=== PATIENT | male | born 1960 | race Caucasian/White ===

== ENCOUNTER 2022-12-26 11:26 | Emergency (ER) | payer BC, MEDICAID ==
[~2022-12-26] VITALS: Ht 188 cm; Wt 118.2 kg
[2022-12-26] MEDS ORDERED: normal saline 1000ML IV soln IVB ONE (11:45)
[2022-12-26] MEDS ORDERED: ondansetron/PF 4mg/2ml inj IV ONE (11:45)
[2022-12-26] MEDS ORDERED: morphine 4 MG/ML inj SYRINge IV PRN (11:45)
[2022-12-26 12:07] LABS: BASOPHILS # (AUTO) 0.1 X10'3 (0-0.2); BASOPHILS % (AUTO) 0.7 % (0-1); EOSINOPHILS # (AUTO) 0.2 X10'3 (0-0.9); EOSINOPHILS % (AUTO) 1.1 % (0-6); HEMATOCRIT 48.3 % (42.0-52.0); HEMOGLOBIN 15.7 g/dl (14.0-17.9); LYMPHOCYTES # (AUTO) 4.9 X10'3 (1.1-4.8); LYMPHOCYTES % (AUTO) 26.9 % (21-51); MEAN CORPUSCULAR HEMOGLOBIN 29.3 PG (27.0-31.0); MEAN CORPUSCULAR HGB CONC 32.6 g/dL (33.0-36.5); MEAN PLATELET VOLUME 8.2 FL (7.4-10.4); MONOCYTES % (AUTO) 5.7 % (2-12); NEUTROPHILS % (AUTO) 65.6 % (42-75); PLATELET COUNT 241 X10'3 (140-440); RED BLOOD COUNT 5.37 X10'6 (4.70-6.10); RED CELL DISTRIBUTION WIDTH 14.7 % (11.5-14.5); WHITE BLOOD COUNT 18.2 X10'3 (4.5-11.0)
[2022-12-26 12:23] LABS: ANION GAP 13 (8-16); BLOOD UREA NITROGEN 20 MG/DL (7-18); BUN/CREATININE RATIO 16.7 (10.0-20.0); CHLORIDE 101 MMOL/L (99-107); GLUCOSE 196 MG/DL (70-104); POTASSIUM 3.7 MMOL/L (3.5-5.1); SODIUM 136 MMOL/L (135-145); TOTAL CARBON DIOXIDE 22.1 MMOL/L (24-32)
[2022-12-26 12:24] LABS: ALANINE AMINOTRANSFERASE 37 U/L (12-78); ALBUMIN 4.1 G/DL (3.4-5.0); ALBUMIN/GLOBULIN RATIO 1.1 (1.1-1.5); ALKALINE PHOSPHATASE 96 IU/L (46-116); ASPARTATE AMINO TRANSFERASE 26 U/L (10-37); BILIRUBIN,TOTAL 0.4 MG/DL (0.1-1.0); CALCIUM 8.9 MG/DL (8.5-10.1); TOTAL PROTEIN 7.8 G/DL (6.4-8.2); eGFR 61 ML/MIN
--- NOTE | 2022-12-26 13:00 | NUR ---
pt is difficult IV start - verbal order for meds to be switched to PO/IM
[2022-12-26] MEDS ORDERED: morphine 4 MG/ML inj SYRINge IM ONE (13:05)
[2022-12-26] MEDS ORDERED: ondansetron 4mg rapidly disintigrating tab PO ONE (13:05)
--- NOTE | 2022-12-26 13:44 | NUR ---
attempted migdalia test with crutches. pt is still painful just trying to get to edgo of bed. provider aware and will order meds.
[2022-12-26] MEDS ORDERED: diazepam 5mg tablet PO ONE (13:50)
[2022-12-26] MEDS ORDERED: HYDR-3965 PO (13:54)
[2022-12-26] MEDS ORDERED: DIAZ5TAB22 PO (13:54)
--- NOTE | 2022-12-26 14:46 | NUR ---
PER SHAMEKA TRIPATHI NO NEED FOR URINE COLLECTION.
[2022-12-26 14:48] VITALS: BP 129/89
[2022-12-27] MEDS ORDERED: DIAZ5TAB22 PO ×2 (09:36)
[2022-12-27] MEDS ORDERED: HYDR-3965 PO ×2 (09:36)
== END 2022-12-26 15:06 | disposition home or self-care (01) ==
LOC: ER 11:27
DX: M25.551 Pain in right hip (principal); E78.00 Pure hypercholesterolemia, unspecified; I10 Essential (primary) hypertension; E11.9 Type 2 diabetes mellitus without complications; Z79.899 Other long term (current) drug therapy; X58.XXXA Exposure to other specified factors, initial encounter; Y93.89 Activity, other specified; Y92.89 Other specified places as the place of occurrence of the external cause; Y99.8 Other external cause status
CPT/HCPCS: 36415; 71045; 73502; 80053; 85025; 85610; 86885; 86900; 86901; 93005; 96372; 99285; J2270; A6258; A6449

== ENCOUNTER 2022-12-28 18:31 | Inpatient (IN) | payer BC, MEDICAID ==
[~2022-12-28] VITALS: Ht 188 cm; Wt 123.9 kg
[~2022-12-28 18:31] MED LIST: DIAZ5TAB22 PO; HYDR-3965 PO
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
[2022-12-28] MEDS ORDERED: LORazepam 2 mg/ml vial IV ONE (18:45)
[2022-12-28] MEDS ORDERED: normal saline 1000ML IV soln IVB ONE (18:45)
[2022-12-28 19:02] LABS: BASOPHILS # (AUTO) 0.1 X10'3 (0-0.2); BASOPHILS % (AUTO) 0.6 % (0-1); EOSINOPHILS # (AUTO) 0.4 X10'3 (0-0.9); EOSINOPHILS % (AUTO) 1.9 % (0-6); HEMATOCRIT 47.1 % (42.0-52.0); HEMOGLOBIN 15.6 g/dl (14.0-17.9); LYMPHOCYTES # (AUTO) 4.1 X10'3 (1.1-4.8); LYMPHOCYTES % (AUTO) 21.2 % (21-51); MEAN CORPUSCULAR HEMOGLOBIN 29.2 PG (27.0-31.0); MEAN CORPUSCULAR VOLUME 88.4 FL (78-98); MEAN PLATELET VOLUME 8.2 FL (7.4-10.4); MONOCYTES % (AUTO) 10.1 % (2-12); NEUTROPHILS % (AUTO) 66.2 % (42-75); PLATELET COUNT 217 X10'3 (140-440); RED BLOOD COUNT 5.33 X10'6 (4.70-6.10); RED CELL DISTRIBUTION WIDTH 14.5 % (11.5-14.5); WHITE BLOOD COUNT 19.6 X10'3 (4.5-11.0)
[2022-12-28 19:22] LABS: ALANINE AMINOTRANSFERASE 28 U/L (12-78); ALBUMIN 3.5 G/DL (3.4-5.0); ALBUMIN/GLOBULIN RATIO 0.8 (1.1-1.5); ALKALINE PHOSPHATASE 93 IU/L (46-116); ANION GAP 14 (8-16); ASPARTATE AMINO TRANSFERASE 18 U/L (10-37); BILIRUBIN,TOTAL 0.8 MG/DL (0.1-1.0); BLOOD UREA NITROGEN 19 MG/DL (7-18); BUN/CREATININE RATIO 12.4 (10.0-20.0); CALCIUM 9.1 MG/DL (8.5-10.1); CHLORIDE 100 MMOL/L (99-107); CREATININE 1.53 MG/DL (0.60-1.10); GLUCOSE 280 MG/DL (70-104); POTASSIUM 3.7 MMOL/L (3.5-5.1); SODIUM 138 MMOL/L (135-145); TOTAL CARBON DIOXIDE 24.2 MMOL/L (24-32); TOTAL PROTEIN 7.7 G/DL (6.4-8.2); eGFR 46 ML/MIN
[2022-12-28 20:47] LABS: CLARITY,URINE CLEAR (Clear); COLOR,URINE YELLOW (Yellow); GLUCOSE, URINE >=1000 mg/dl (Neg); KETONES,URINE 40 mg/dl (Neg); LEUKOCYTE ESTERASE ,URINE NEGATIVE (Neg); NITRITES, URINE NEGATIVE (Neg); OCCULT BLOOD,URINE NEGATIVE (Neg); PH,URINE 5.5 (4.8-8.0); PROTEIN,URINE NEGATIVE (Neg); UROBILINOGEN,URINE 0.2 E.U/dL (0.2-1.0)
[2022-12-28 20:50] LABS: UA COLLECTION TYPE VOIDED
[2022-12-28 20:57] LABS: BACTERIA,URINE NONE SEEN /HPF (Neg); MUCUS STRANDS NONE SEEN /LPF (Neg); RBC,URINE NONE SEEN /HPF (0-2); SQUAMOUS EPITHELIAL CELL,UR FEW /LPF (FEW); WBC,URINE 0-4 /HPF (0-4)
[2022-12-28] MEDS ORDERED: temazepam 15mg capsule PO PRN (21:00)
[2022-12-28 21:12] LABS: URINE AMPHETAMINE SCREEN NEGATIVE (Neg); URINE BARBITUATE SCREEN NEGATIVE (Neg); URINE BENZODIAZEPINES SCREEN POSITIVE (Neg); URINE CANNABINOID SCREEN POSITIVE (Neg); URINE COCAINE SCREEN NEGATIVE (Neg); URINE METHADONE SCREEN NEGATIVE (Neg); URINE OPIATE SCREEN POSITIVE (Neg); URINE PHENCYCLIDINE SCREEN NEGATIVE (Neg)
[2022-12-28] MEDS ORDERED: amiodarone 200mg tablet PO ONE (21:50)
[2022-12-28] MEDS ORDERED: rivaroxaban 20mg tablet PO ONE (21:50)
[2022-12-28] MEDS ORDERED: diltiazem-NS 100mg/100ml 100 ML IV ONE (22:20)
[2022-12-28] MEDS ORDERED: morphine 4 MG/ML inj SYRINge IV ONE (22:20)
[2022-12-28] MEDS ORDERED: ondansetron/PF 4mg/2ml inj IM ONE (22:20)
[2022-12-28] MEDS ORDERED: potassium Cl 20 mEq SR tablet PO PRN ×2 (23:40)
[2022-12-28] MEDS ORDERED: ondansetron/PF 4mg/2ml inj IV PRN (23:40)
[2022-12-28] MEDS ORDERED: magnesium Cl slow-release 64mg tablet PO PRN (23:40)
[2022-12-28] MEDS ORDERED: potassium Cl 40MEQ/1/2NS 520ml 520 ML IV PRN (23:40)
[2022-12-28] MEDS ORDERED: LORazepam 1 MG tablet PO PRN (23:40)
[2022-12-28] MEDS ORDERED: atenolol 50mg tablet PO SCH (23:40)
[2022-12-28] MEDS ORDERED: magnesium 2GM in 50ml NS 50 ML IV PRN (23:40)
[2022-12-28] MEDS ORDERED: LORazepam 2 mg/ml vial IV PRN (23:40)
[2022-12-28] MEDS ORDERED: magnesium 4gm in 100ml NS 100 ML IV PRN (23:40)
[2022-12-28] MEDS ORDERED: acetaminophen 325mg tablet PO PRN ×2 (23:40)
[2022-12-28] MEDS ORDERED: MESSAGE TO PHARMACY PO ONE (23:55)
[2022-12-28] MEDS: normal saline 1000ml 1,000 ML IV SCH (23:55)
[2022-12-28] MEDS ORDERED: glucagon, human recombinant 1mg kit SUBCUT PRN (23:55)
[2022-12-28] MEDS ORDERED: dextrose 50%-water 50ml dispensing syringe IV PRN ×2 (23:55)
[2022-12-28] MEDS ORDERED: DEXTROSE 15 GM of carb/4 tabs (each vial/BOTTLE has 4 tablets) PO PRN ×2 (23:55)
[2022-12-28] MEDS ORDERED: diltiazem-D5W 125mg/125ml 125 ML IV SCH (23:55)
[2022-12-28] MEDS: diltiazem-NS 100mg/100ml 100 ML IV SCH (23:57)
[2022-12-29] MEDS: vancomycin/NS 1 GM ADD-VANTAGE 250 ML IV SCH ×3 (00:03→23:20)
[2022-12-29] MEDS: diltiazem-NS 100mg/100ml 100 ML IV SCH (07:27)
[2022-12-29] MEDS ORDERED: multivitamins, therapeutics tablet PO SCH (08:00)
[2022-12-29] MEDS: heparin, porcine 5000 units/ml vial SQ SCH ×2 (08:24→21:50)
[2022-12-29] MEDS: piperacillin/tazo 3.375gm/50ml 50 ML IV SCH ×3 (08:24→16:09)
--- NOTE | 2022-12-29 08:54 | NUR ---
PT UNABLE TO STAND D/T PAIN OR REPOSITION TO USE URINAL. CONDOM CATH APPLIED WITH NO COMPLICATION.
--- NOTE | 2022-12-29 09:07 | NUR ---
TRELL PAGED DR RENE REQ PAIN MED.
[2022-12-29 09:49] LABS: BASOPHILS # (AUTO) 0.1 X10'3 (0-0.2); BASOPHILS % (AUTO) 0.9 % (0-1); EOSINOPHILS # (AUTO) 0.1 X10'3 (0-0.9); EOSINOPHILS % (AUTO) 0.8 % (0-6); HEMATOCRIT 41.5 % (42.0-52.0); HEMOGLOBIN 13.6 g/dl (14.0-17.9); LYMPHOCYTES # (AUTO) 1.7 X10'3 (1.1-4.8); LYMPHOCYTES % (AUTO) 12.4 % (21-51); MEAN CORPUSCULAR HGB CONC 32.8 g/dL (33.0-36.5); MEAN CORPUSCULAR VOLUME 88.4 FL (78-98); MEAN PLATELET VOLUME 8.3 FL (7.4-10.4); MONOCYTES # (AUTO) 1.1 X10'3 (0-0.9); MONOCYTES % (AUTO) 8.4 % (2-12); NEUTROPHILS # (AUTO) 10.5 X10'3 (1.8-7.7); NEUTROPHILS % (AUTO) 77.5 % (42-75); PLATELET COUNT 207 X10'3 (140-440); RED BLOOD COUNT 4.69 X10'6 (4.70-6.10); RED CELL DISTRIBUTION WIDTH 14.8 % (11.5-14.5); WHITE BLOOD COUNT 13.5 X10'3 (4.5-11.0)
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
[2022-12-29 10:05] LABS: ALANINE AMINOTRANSFERASE 25 U/L (12-78); ALBUMIN 3.2 G/DL (3.4-5.0); ALBUMIN/GLOBULIN RATIO 0.8 (1.1-1.5); ALKALINE PHOSPHATASE 80 IU/L (46-116); ANION GAP 18 (8-16); ASPARTATE AMINO TRANSFERASE 15 U/L (10-37); BLOOD UREA NITROGEN 19 MG/DL (7-18); CALCIUM 8.6 MG/DL (8.5-10.1); CHLORIDE 105 MMOL/L (99-107); CREATININE 1.12 MG/DL (0.60-1.10); GLUCOSE 181 MG/DL (70-104); POTASSIUM 3.9 MMOL/L (3.5-5.1); SODIUM 143 MMOL/L (135-145); TOTAL CARBON DIOXIDE 19.8 MMOL/L (24-32); eGFR 66 ML/MIN
--- NOTE | 2022-12-29 10:17 | NUR ---
RN REQUESTED INSULIN FROM PHARMACY. PHARMACY WILL BRINB TO THE ED
[2022-12-29] MEDS: insulin Lispro (HumaLOG) vial - multi-dose SQ SCH ×2 (10:31→14:14)
[2022-12-29] MEDS: normal saline 1000ml 1,000 ML IV SCH ×2 (11:16→19:55)
[2022-12-29] MEDS: HYDROcodone/acetaminophen 5mg/325mg tablet PO PRN ×2 (11:20→21:48)
--- NOTE | 2022-12-29 14:21 | NUR ---
RN FAXED LIST OF MEDS TO PHARMACIST.
--- NOTE | 2022-12-29 18:23 | NUR ---
AGRICULTURAL TECHNICAL OFFICER APPROVED PT GETTING [employer] BROUGHT BY HIS . RN WROTE WHAT WAS PROVIDED SO PM RN CAN COUNT CARBS.
[2022-12-29] MEDS ORDERED: LANTUS SQ (18:42)
[2022-12-29] MEDS ORDERED: PRAV20TA4 PO (18:43)
[2022-12-29] MEDS ORDERED: TRAM50TA2 PO (18:43)
[2022-12-29] MEDS ORDERED: ESCI20TA39 PO (18:44)
[2022-12-29] MEDS ORDERED: LEVO88TA7 PO (18:44)
[2022-12-29] MEDS ORDERED: ARIP15TA19 PO (18:44)
[2022-12-29] MEDS ORDERED: EMPA25TA PO (18:45)
[2022-12-29] MEDS ORDERED: FLO0.4C PO (18:45)
[2022-12-29] MEDS ORDERED: NAPR-996 PO (18:46)
--- NOTE | 2022-12-29 19:45 | NUR ---
REPORT CALLED TO FLOOR NURSE KENNY MORALES TO ROOM 3019 BY PICK UP TRUCK DRIVER
[2022-12-29 20:33] VITALS: BP 121/78
[2022-12-29] MEDS: insulin glargine (Lantus) pen - multi-dose SQ SCH (21:00)
[2022-12-29 22:56] VITALS: BP 121/70
[2022-12-30] VITALS (9 sets, daily range): BP systolic 108–139; BP diastolic 70–90
[2022-12-30] MEDS: piperacillin/tazo 3.375gm/50ml 50 ML IV SCH ×3 (01:28→15:44)
[2022-12-30] MEDS: HYDROcodone/acetaminophen 5mg/325mg tablet PO PRN ×4 (04:22→20:26)
[2022-12-30 05:29] LABS: BASOPHILS # (AUTO) 0.1 X10'3 (0-0.2); BASOPHILS % (AUTO) 1.1 % (0-1); EOSINOPHILS # (AUTO) 0.4 X10'3 (0-0.9); HEMATOCRIT 40.5 % (42.0-52.0); HEMOGLOBIN 13.4 g/dl (14.0-17.9); LYMPHOCYTES # (AUTO) 2.5 X10'3 (1.1-4.8); LYMPHOCYTES % (AUTO) 21.4 % (21-51); MEAN CORPUSCULAR HEMOGLOBIN 29.4 PG (27.0-31.0); MEAN CORPUSCULAR HGB CONC 33.1 g/dL (33.0-36.5); MEAN CORPUSCULAR VOLUME 88.8 FL (78-98); MEAN PLATELET VOLUME 8.4 FL (7.4-10.4); MONOCYTES # (AUTO) 0.9 X10'3 (0-0.9); MONOCYTES % (AUTO) 7.9 % (2-12); NEUTROPHILS # (AUTO) 7.7 X10'3 (1.8-7.7); NEUTROPHILS % (AUTO) 66.6 % (42-75); PLATELET COUNT 215 X10'3 (140-440); RED BLOOD COUNT 4.56 X10'6 (4.70-6.10); RED CELL DISTRIBUTION WIDTH 14.4 % (11.5-14.5); WHITE BLOOD COUNT 11.6 X10'3 (4.5-11.0)
[2022-12-30] MEDS: normal saline 1000ml 1,000 ML IV SCH ×2 (05:55→16:05)
[2022-12-30 06:02] LABS: ALANINE AMINOTRANSFERASE 22 U/L (12-78); ALBUMIN/GLOBULIN RATIO 0.8 (1.1-1.5); ALKALINE PHOSPHATASE 79 IU/L (46-116); ANION GAP 15 (8-16); ASPARTATE AMINO TRANSFERASE 18 U/L (10-37); BLOOD UREA NITROGEN 20 MG/DL (7-18); CALCIUM 8.7 MG/DL (8.5-10.1); CHLORIDE 106 MMOL/L (99-107); CREATININE 1.05 MG/DL (0.60-1.10); GLUCOSE 155 MG/DL (70-104); SODIUM 142 MMOL/L (135-145); TOTAL CARBON DIOXIDE 20.9 MMOL/L (24-32); TOTAL PROTEIN 6.9 G/DL (6.4-8.2); eGFR 72 ML/MIN
[2022-12-30] MEDS: diltiazem-NS 100mg/100ml 100 ML IV SCH (06:06)
[2022-12-30 06:38] LABS: HEMOGLOBIN A1C 8.4 % (4.5-6.2)
--- NOTE | 2022-12-30 06:40 | NUR ---
Problems reprioritized. Patient report given, questions answered & plan of care reviewed with ELLEN CAI.
--- NOTE | 2022-12-30 06:59 | NUR ---
Patient in room U 3019. I have received report from Laron CAI and had the opportunity to ask questions and assume patient care.Patient resting in bed in no acute distress.
[2022-12-30] MEDS: heparin, porcine 5000 units/ml vial SQ SCH ×2 (08:25→20:29)
[2022-12-30] MEDS ORDERED: VANCOMYCIN LEVEL IV ONE (11:30)
[2022-12-30] MEDS: vancomycin/NS 1 GM ADD-VANTAGE 250 ML IV SCH (13:28)
--- NOTE | 2022-12-30 14:09 | NUR ---
Per conversation with Dr. Roman start 30 mg PO cardizem Q6 hours and stop cardizem gtt 1 hour after po med given. Ok to change norco 5 mg po frequency to q4hr .
[2022-12-30] MEDS ORDERED: traMADol 50MG tablet PO PRN (14:55)
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
[2022-12-30] MEDS: diltiazem 30mg tablet PO SCH ×2 (15:31→20:27)
[2022-12-30] MEDS: tamsulosin 0.4mg capsule PO SCH (15:44)
[2022-12-30] MEDS: levoTHYROXINE 88mcg tablet PO SCH (15:44)
--- NOTE | 2022-12-30 15:55 | NUR ---
Patient in room PCU 3019. I have received report from Annmarie CAI and had the opportunity to ask questions and assume patient care.
--- NOTE | 2022-12-30 15:59 | NUR ---
gave report to Toma will continue to monitor until cardizem gtt comes down in half an hour
--- NOTE | 2022-12-30 18:17 | NUR ---
Problems reprioritized. Patient report given, questions answered & plan of care reviewed with Laron CAI.
[2022-12-30] MEDS: insulin Lispro (HumaLOG) vial - multi-dose SQ SCH (19:19)
[2022-12-30] MEDS: ARIPIPRAZOLE 15 MG TABLET PO SCH (20:27)
[2022-12-30] MEDS: atorvastatin 10mg tablet PO SCH (20:28)
[2022-12-30] MEDS: insulin glargine (Lantus) pen - multi-dose SQ SCH (22:39)
[2022-12-31] MEDS: VANCOMYCIN 1,500MG in normal saline IV soln 300 ML IV SCH ×3 (00:11→23:21)
[2022-12-31] MEDS: normal saline 1000ml 1,000 ML IV SCH ×3 (01:55→23:20)
[2022-12-31] MEDS: piperacillin/tazo 3.375gm/50ml 50 ML IV SCH ×3 (02:00→17:12)
[2022-12-31] MEDS: diltiazem 30mg tablet PO SCH ×4 (02:46→20:11)
[2022-12-31 03:41] VITALS: BP 147/84
--- NOTE | 2022-12-31 06:34 | NUR ---
Problems reprioritized. Patient report given, questions answered & plan of care reviewed with Annmarie CAI.
[2022-12-31 07:00] VITALS: BP 156/85
[2022-12-31] MEDS: ESCITALOPRAM OXALATE 5 MG TABLET PO SCH (07:53)
[2022-12-31] MEDS: levoTHYROXINE 88mcg tablet PO SCH (07:53)
[2022-12-31] MEDS: tamsulosin 0.4mg capsule PO SCH (07:53)
[2022-12-31] MEDS: HYDROcodone/acetaminophen 5mg/325mg tablet PO PRN ×3 (07:53→20:14)
[2022-12-31] MEDS: heparin, porcine 5000 units/ml vial SQ SCH ×2 (07:54→20:16)
[2022-12-31 08:39] LABS: ALANINE AMINOTRANSFERASE 30 U/L (12-78); ALBUMIN 3.3 G/DL (3.4-5.0); ALBUMIN/GLOBULIN RATIO 0.7 (1.1-1.5); ALKALINE PHOSPHATASE 97 IU/L (46-116); ANION GAP 14 (8-16); ASPARTATE AMINO TRANSFERASE 22 U/L (10-37); BILIRUBIN,TOTAL 0.9 MG/DL (0.1-1.0); BLOOD UREA NITROGEN 18 MG/DL (7-18); BUN/CREATININE RATIO 18.2 (10.0-20.0); CALCIUM 9.4 MG/DL (8.5-10.1); CHLORIDE 101 MMOL/L (99-107); CREATININE 0.99 MG/DL (0.60-1.10); GLUCOSE 193 MG/DL (70-104); POTASSIUM 4.1 MMOL/L (3.5-5.1); SODIUM 136 MMOL/L (135-145); TOTAL CARBON DIOXIDE 20.7 MMOL/L (24-32); TOTAL PROTEIN 8.1 G/DL (6.4-8.2); eGFR 77 ML/MIN
[2022-12-31 08:42] LABS: BASOPHILS # (AUTO) 0.2 X10'3 (0-0.2); BASOPHILS % (AUTO) 1.5 % (0-1); EOSINOPHILS # (AUTO) 0.5 X10'3 (0-0.9); EOSINOPHILS % (AUTO) 4.1 % (0-6); HEMATOCRIT 48.5 % (42.0-52.0); HEMOGLOBIN 15.8 g/dl (14.0-17.9); LYMPHOCYTES # (AUTO) 3.2 X10'3 (1.1-4.8); MEAN CORPUSCULAR HEMOGLOBIN 29.2 PG (27.0-31.0); MEAN CORPUSCULAR HGB CONC 32.5 g/dL (33.0-36.5); MEAN CORPUSCULAR VOLUME 89.7 FL (78-98); MEAN PLATELET VOLUME 8.8 FL (7.4-10.4); MONOCYTES # (AUTO) 1.2 X10'3 (0-0.9); MONOCYTES % (AUTO) 9.6 % (2-12); NEUTROPHILS # (AUTO) 7.1 X10'3 (1.8-7.7); NEUTROPHILS % (AUTO) 58.8 % (42-75); PLATELET COUNT 242 X10'3 (140-440); RED BLOOD COUNT 5.41 X10'6 (4.70-6.10); RED CELL DISTRIBUTION WIDTH 14.8 % (11.5-14.5); WHITE BLOOD COUNT 12.2 X10'3 (4.5-11.0)
--- NOTE | 2022-12-31 09:45 | NUR ---
I BENT THE NEEDLE WHILE DRAWING UP HEPARIN DURING MED PASS EARLIER SO I THREW THE FIRST VIAL OF HEPARIN AND BENT NEEDLE IN THE SHARPS CONTAINER. i AM GOING TO ADMINISTER THE HEPARIN WHEN I ADMIN INSULIN. pATIENT DID NOT GET TWO VIALS OF HEPARIN THIS MORNING. tH FIRST ONE WAS DISCARDED EARLIER.
[2022-12-31] MEDS: insulin Lispro (HumaLOG) vial - multi-dose SQ SCH ×3 (09:50→19:22)
[2022-12-31 11:00] VITALS: BP 136/86
[2022-12-31 15:00] VITALS: BP 147/84
[2022-12-31 15:49] LABS: HBSAG SCREEN Negative (Negative); HEP B CORE AB, TOT Negative (Negative)
[2022-12-31 18:00] VITALS: BP 100/63
--- NOTE | 2022-12-31 18:03 | NUR ---
Problems reprioritized. Patient report given, questions answered & plan of care reviewed with Laron CAI. Patient resting in bed in no acute distress.
[2022-12-31] MEDS: ARIPIPRAZOLE 15 MG TABLET PO SCH (20:12)
[2022-12-31] MEDS: atorvastatin 10mg tablet PO SCH (20:12)
[2022-12-31] MEDS: insulin glargine (Lantus) pen - multi-dose SQ SCH (21:36)
[2022-12-31 23:00] VITALS: BP 123/68
[2023-01-01] MEDS: diltiazem 30mg tablet PO SCH ×2 (01:41→08:11)
[2023-01-01] MEDS: piperacillin/tazo 3.375gm/50ml 50 ML IV SCH ×2 (01:42→08:22)
[2023-01-01] MEDS: HYDROcodone/acetaminophen 5mg/325mg tablet PO PRN ×3 (01:48→15:19)
[2023-01-01 03:00] VITALS: BP 120/76
[2023-01-01 06:22] LABS: BASOPHILS # (AUTO) 0.2 X10'3 (0-0.2); BASOPHILS % (AUTO) 1.6 % (0-1); EOSINOPHILS # (AUTO) 0.4 X10'3 (0-0.9); HEMATOCRIT 43.3 % (42.0-52.0); HEMOGLOBIN 14.6 g/dl (14.0-17.9); LYMPHOCYTES # (AUTO) 2.6 X10'3 (1.1-4.8); LYMPHOCYTES % (AUTO) 27.7 % (21-51); MEAN CORPUSCULAR HEMOGLOBIN 29.8 PG (27.0-31.0); MEAN CORPUSCULAR HGB CONC 33.7 g/dL (33.0-36.5); MEAN CORPUSCULAR VOLUME 88.3 FL (78-98); MEAN PLATELET VOLUME 8.1 FL (7.4-10.4); MONOCYTES # (AUTO) 0.9 X10'3 (0-0.9); MONOCYTES % (AUTO) 9.1 % (2-12); NEUTROPHILS # (AUTO) 5.5 X10'3 (1.8-7.7); NEUTROPHILS % (AUTO) 57.6 % (42-75); PLATELET COUNT 249 X10'3 (140-440); RED CELL DISTRIBUTION WIDTH 14.4 % (11.5-14.5); WHITE BLOOD COUNT 9.5 X10'3 (4.5-11.0)
--- NOTE | 2023-01-01 06:35 | NUR ---
Problems reprioritized. Patient report given, questions answered & plan of care reviewed with Erika [employer]IR[employer] W[employer]ER.
[2023-01-01 06:40] LABS: ALANINE AMINOTRANSFERASE 33 U/L (12-78); ALBUMIN/GLOBULIN RATIO 0.8 (1.1-1.5); ALKALINE PHOSPHATASE 80 IU/L (46-116); ANION GAP 10 (8-16); ASPARTATE AMINO TRANSFERASE 22 U/L (10-37); BILIRUBIN,TOTAL 0.8 MG/DL (0.1-1.0); BLOOD UREA NITROGEN 16 MG/DL (7-18); BUN/CREATININE RATIO 15.8 (10.0-20.0); CALCIUM 9.1 MG/DL (8.5-10.1); CHLORIDE 104 MMOL/L (99-107); CREATININE 1.01 MG/DL (0.60-1.10); GLUCOSE 167 MG/DL (70-104); POTASSIUM 3.9 MMOL/L (3.5-5.1); SODIUM 139 MMOL/L (135-145); TOTAL CARBON DIOXIDE 24.7 MMOL/L (24-32); eGFR 75 ML/MIN
[2023-01-01 07:00] VITALS: BP 124/82
[2023-01-01] MEDS: ESCITALOPRAM OXALATE 5 MG TABLET PO SCH (08:11)
[2023-01-01] MEDS: levoTHYROXINE 88mcg tablet PO SCH (08:11)
[2023-01-01] MEDS: tamsulosin 0.4mg capsule PO SCH (08:11)
[2023-01-01] MEDS: normal saline 1000ml 1,000 ML IV SCH (08:11)
[2023-01-01] MEDS: heparin, porcine 5000 units/ml vial SQ SCH (08:12)
[2023-01-01] MEDS: insulin Lispro (HumaLOG) vial - multi-dose SQ SCH ×2 (08:57→14:19)
[2023-01-01] MEDS ORDERED: DOXY100C2 PO (10:00)
[2023-01-01 11:00] VITALS: BP 130/80
[2023-01-01] MEDS ORDERED: VANCOMYCIN LEVEL IV ONE (11:30)
[2023-01-01] MEDS ORDERED: VANCOmycin 1250MG/NS 250ml Bag 250 ML IV SCH (13:00)
--- NOTE | 2023-01-01 13:11 | NUR ---
I AGREE WITH QASIM, DATA REPORT ANALYST ASSESSMENT.
[2023-01-01 15:00] VITALS: BP 124/82
--- NOTE | 2023-01-01 16:17 | NUR ---
Pt d/c'd per MD order. Pt signed all paperwork and took all belongings. PIV d/c'd left and right cannula intact. Pt transferred safely off unit at approx 1620 into family vehicle.
[2023-01-02] MEDS ORDERED: folic acid 1mg tablet PO SCH (08:00)
[2023-01-02] MEDS ORDERED: thiamine 100mg tablet PO SCH (08:00)
[2023-01-02] MEDS ORDERED: VANCOMYCIN LEVEL IV ONE (12:30)
== END 2023-01-01 16:20 | disposition home health service (06) | DRG 193 ==
LOC: ER 18:31 → ED HOLD 23:40 → UNDOADMOB 23:40 → ED HOLD 23:52 → OBSVTOIN 12-29 00:13 → PCU 3S 12-29 20:00
PROVIDERS: ADMIT Internal Medicine; ATTEND Internal Medicine
DX: J18.9 Pneumonia, unspecified organism (principal); N17.0 Acute kidney failure with tubular necrosis; R65.10 Systemic inflammatory response syndrome (SIRS) of non-infectious origin without acute organ dysfunction; I48.0 Paroxysmal atrial fibrillation; E03.9 Hypothyroidism, unspecified; I12.9 Hypertensive chronic kidney disease with stage 1 through stage 4 chronic kidney disease, or unspecified chronic kidney disease; E11.22 Type 2 diabetes mellitus with diabetic chronic kidney disease; N18.9 Chronic kidney disease, unspecified; E78.00 Pure hypercholesterolemia, unspecified; R10.31 Right lower quadrant pain; R10.32 Left lower quadrant pain; R26.2 Difficulty in walking, not elsewhere classified; F32.A Depression, unspecified; N40.0 Benign prostatic hyperplasia without lower urinary tract symptoms; Z79.4 Long term (current) use of insulin; Z79.84 Long term (current) use of oral hypoglycemic drugs; Z79.899 Other long term (current) drug therapy; V19.9XXA Pedal cyclist (driver) (passenger) injured in unspecified traffic accident, initial encounter; Y93.89 Activity, other specified; Y92.89 Other specified places as the place of occurrence of the external cause; Y99.8 Other external cause status
CPT/HCPCS: 36415; 71045; 74176; 80053; 80202; 80305; 81001; 82948; 83036; 84443; 84484; 85025; 86704; 86705; 86706; 87081; 87340; 96361; 96365; 96372; 96375; 97110; 97161; 97530; 99285; A4340; A4349; A4615; A5200; A6402; A6446; A6449; G0378; J1644; J1815; J2060; J2270; J2405; J2543; J3370; J3490; J7030; J7040